=== PATIENT | male | born 1995 | race Caucasian/White ===

== ENCOUNTER 2018-12-14 00:13 | Emergency (ER) | payer OTHER ==
[2018-12-14] MEDS ORDERED: diPHENhydraMINE IV* 50 MG/ML 1 ml VIAL (BENADRYL) IM ONE (00:14)
[2018-12-14] MEDS ORDERED: LORazepam INJ* 2 MG/ML 1 ML VIAL IM ONE (00:14)
[2018-12-14] MEDS ORDERED: Haloperidol INJ IV/IM* 5 MG/ML AMP IM ONE (00:14)
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
[2018-12-14] MEDS ORDERED: Lorazepam PYXIS KEY ONE (00:28)
[2018-12-14 00:59] LABS: ABS Basophils 0.1 10^3/ul (0-0.2); ABS Lymphocytes 2.7 10^3/ul (1.0-4.8); ABS Monocytes 0.4 10^3/ul (0-0.8); ABS Neutrophils 5.3 10^3/ul (1.5-7.7); Eosinophil % 0.5 %; Hematocrit 45 % (42-52); Hemoglobin 15.5 g/dL (14.0-18.0); Mean Corpuscular HGB Conc 35 g/dL (31-36); Mean Corpuscular Hemoglobin 33 pg (27-31); Mean Corpuscular Volume 95 fL (80-94); Mean Platelet Volume 7.5 fL (7.4-10.4); Nucleated Red Blood Cells % 0.1; Platelet Count 263 10^3/uL (150-450); Red Blood Count 4.73 10^6 /uL (4.18-5.48); Red Cell Distribution Width 13 % (10-15); White Blood Count 8.5 10^3/uL (3.5-10.8)
[2018-12-14 01:17] LABS: Albumin 4.9 g/dL (3.2-5.2); Calcium 9.1 mg/dL (8.6-10.3); EGFR African American 105.7 (>60); EGFR Non-African American 87.4 (>60); Globulin 2.5 g/dL (2-4); Potassium 3.5 mmol/L (3.5-5.0); Total Bilirubin 1.4 mg/dL (0.2-1.0); Total Protein 7.4 g/dL (6.4-8.9)
--- NOTE | 2018-12-14 07:24 | ED ---
Progress - Progress Note Progress Note: This patient is a 23-year old M presenting to [facility] with alcohol intoxication. Patient is a sign-out from Dr. Walter Johnson to Dr. Juan Atkins at 0700 on 12/14/18 at shift change pending sobriety. Re-Evaluation - Re-Evaluation First Eval Re-Evaluation Time: 10:40 Change: Improved Comment: Patient reports feeling better and can ambulate around the department without difficulty. Patient is awake and oriented x3 and safe for discharge. Patient will be discharged home with dx of alcohol intoxication. Patient understands and agrees with this plan. Course/Dx - Course Course Of Treatment: This patient is a 23-year old M presenting to [facility] with alcohol intoxication. Patient is a sign-out from Dr. Walter Johnson to Dr. Lelia Atkins at 0700 on 12/14/18 at shift change pending sobriety. In the ED after sleeping, patient obtained sobriety and was able to ambulate around the department without difficulty. Patient is awake and oriented x3 and he reports feeling better. He is hemodynamically stable and safe for discharge. Strict return precautions given and he will otherwise follow up with his PCP. Patient will be discharged home with dx of alcohol intoxication. Patient understands and agrees with this plan. - Diagnoses Provider Diagnoses: Alcohol intoxication Discharge ED - Sign-Out/Discharge Documenting (check all that apply): Patient Departure - Discharge, Receiving Sign-Out Receiving patient FROM: Walter Johnson Patient Received Moderate/Deep Sedation with Procedure: No - Discharge Plan Condition: Improved Disposition: HOME Patient Education Materials: Alcohol Intoxication (ED), Abuse of Alcohol (ED) Referrals: [facility] [Outside] - Billing Disposition and Condition Condition: IMPROVED Disposition: Home - Attestation Statements Document Initiated by Joanaibe: Yes Documenting Scribe: Cruz Krishnamurthy Provider For Whom Debora is Documenting (Include Credential): Juan Atkins MD Scribe Attestation: Cruz Brasher scribed for Juan Atkins MD on 12/14/18 at 1803. Scribe Documentation Reviewed: Yes Provider Attestation: The documentation as recorded by the Cruz rdz accurately reflects the service I personally performed and the decisions made by me, Juan Atkins MD Status of Scribe Document: Viewed
[2018-12-14 11:12] VITALS: BP 142/86
== END 2018-12-14 11:10 | disposition home or self-care (01) ==
LOC: ED 00:13
DX: F10.929 Alcohol use, unspecified with intoxication, unspecified (principal); S09.90XA Unspecified injury of head, initial encounter; W19.XXXA Unspecified fall, initial encounter; Y92.828 Other wilderness area as the place of occurrence of the external cause
CPT/HCPCS: 36415; 70450; 72125; 80053; 80320; 85025; 96372; 99285; G0480; J1200; J1630; J2060